=== PATIENT | male | born 1985 | race Caucasian/White ===

== ENCOUNTER 2022-01-03 19:33 | Emergency (ER) | payer MEDICAID, SELFPAY ==
--- NOTE | ~2022-01-03 | XR_ITS ---
EXAMINATION: XR HAND, RIGHT CLINICAL INFORMATION: Trauma COMPARISON: None TECHNIQUE: PA, lateral, and oblique views of the right hand. FINDINGS: The bones and soft tissues are normal. No fracture. Alignment is anatomic. Joint spaces are maintained. No erosions or soft tissue calcifications. XR/XR hand RT min 3V IMPRESSION: Normal right hand. No radiopaque foreign body.
[2022-01-03 19:35] VITALS: BP 119/76; PULSE 89; RESP 14; TEMP 36.2; O2SAT 95; BMI 31.5
[2022-01-03 19:48] VITALS: BP 120/73; PULSE 89; RESP 16; TEMP 36.4; O2SAT 95
--- NOTE | 2022-01-03 21:07 | ED_ITS ---
HPI - Extremity Injury (Upper) General Chief Complaint: Extremity Injury, Lower Stated Complaint: small hand lacs/punched window Time Seen by Provider: 01/03/22 21:05 Source: patient and other Mode of arrival: ambulatory History of Present Illness HPI narrative: 36-year-old male is brought in from his long-term with his guardian who reports that the patient punched a glass window that shattered and there are small lacerations the right hand. Patient denies any pain on movement within the hand. Related Data Allergies Allergy/AdvReac Type Severity Reaction Status Date / Time No Known Allergies Allergy Unverified 02/15/20 19:29 [No Known Allergies*] Thorazine Allergy Unknown Uncoded 09/20/19 00:00 Review of Systems Review of Systems: Pertinent positives and negatives as stated in HPI 10 point review of systems is otherwise negative. PMFSH Past Medical History Source: nursing notes reviewed Social History Social History Advance Directives: No Advance Directives Information Provided: No Physical Exam Vital Signs: Vital Signs: Last Vital Signs Temp 97.6 F 01/03/22 19:48 Pulse 89 01/03/22 19:48 Resp 16 01/03/22 19:48 BP 120/73 01/03/22 19:48 Pulse Ox 95 01/03/22 19:48 O2 Del Method 01/03/22 19:48 BMI result Body Mass Index 31.5 VITAL SIGNS: Reviewed. GENERAL: Well developed, well nourished, in no acute distress. HEAD: Normocephalic/atraumatic EYES: PERRLA, EOMI EARS: Ext canals without abnormality OROPHARYNX: no oral lesions noted, posterior pharynx clear LUNGS: Normal breath sounds. No adventitious sounds or accessory muscle use. SpO2<95> CARDIOVASCULAR: Regular rate and rhythm without noted murmurs ABDOMEN: Soft, non-tender, non-distended with bowel sounds. MUSCULOSKELETAL: No tenderness, deformities, or effusions noted on gross inspection. EXTREMITIES: No cyanosis, clubbing or edema; RIGHT HAND: Small superficial lacerations better hemostatic, there is full range of motion at the wrist and all MCPs.. SKIN: Inspection of the skin reveals no rashes NEUROLOGIC: Alert and oriented x 4. Strength and sensation to light touch were grossly intact x 4. Course Course Course Narrative: 36-year-old male with history and clinical presentation consistent with superficial lacerations without evidence of foreign body and on review of x-ray no acute findings. Lacerations were cleansed, bacitracin was applied and patient was discharged back to his long-term in stable condition. Discharge Plan Discharge Clinical Impression: Superficial laceration of right hand Patient Disposition: Xfer Other Instructions: Laceration (ED) Additional Instructions: You may cleanse the wounds on your hand with soap and water and blot dry. Apply antibiotic ointment as needed and apply a Band-Aid over top. Return to the ER for worsening symptoms. Referrals: Hitesh Ruelas DO, MD [Primary Care Provider] -
== END 2022-01-03 21:21 | disposition other institution (70) ==
PROVIDERS: Emergency Provider Student in an Organized Health Care Education/Training Program; PCP Internal Medicine
DX: S61.411A Laceration without foreign body of right hand, initial encounter (principal); W25.XXXA Contact with sharp glass, initial encounter; Y93.89 Activity, other specified; Y92.049 Unspecified place in boarding-house as the place of occurrence of the external cause; Y99.9 Unspecified external cause status
CPT/HCPCS: 73130; 99283

== ENCOUNTER 2022-12-30 11:30 | Emergency (ER) | payer MEDICAID, SELFPAY ==
[2022-12-30 11:32] VITALS: BP 112/77; PULSE 115; RESP 18; TEMP 35.9; O2SAT 95; BMI 32.0
--- NOTE | 2022-12-30 11:34 | ED.GENADULT ---
HPI - General Adult General Chief complaint: Animal Bite Stated complaint: cat scratches Time Seen by Provider: 12/30/22 11:44 Source: patient and other (patient's penitentiary staff) Mode of arrival: ambulatory Limitations: other (patient is mostly non-verbal) History of Present Illness HPI narrative: 37 y/o M PMHx of intellectual disability presents with cat scratches. Patient is mostly non-verbal, but group practice pediatrician states that he found a stray cat outside, who ultimately scratched both hands and bit his right palm. Patient is able to fully move his hands and states that it is painful. Patient denies fevers, chills, N/V/D, chest pain, shortness of breath. Onset (ago): hour(s) Location: left, right and upper extremity Radiation: non-radiation Severity: mild Severity scale (1-10): 3 Quality: aching and dull Pain Consistency: constant Relieving factors: none Exacerbating factors: none Associated symptoms: denies other symptoms Treatments prior to arrival: none Related Data Previous Rx's Medication Instructions Recorded amoxicillin 875 mg-potassium 1 tab PO BID 7 days #14 tabs 12/30/22 clavulanate 125 mg tablet Allergies Allergy/AdvReac Type Severity Reaction Status Date / Time No Known Allergies Allergy Unverified 02/15/20 19:29 [No Known Allergies*] Thorazine Allergy Unknown Uncoded 09/20/19 00:00 Review of Systems Constitutional: Constitutional: Reports no additional constitutional complaints, Denies chills, Denies fever(s) and Denies night sweats Eyes: Eyes: Reports no additional eye complaints, Denies blurry vision, Denies change in vision, Denies diplopia, Denies eye discharge, Denies loss of vision and Denies eye pain ENT: Denies dizziness Cardiovascular: Cardiovascular: Reports no additional cardiovascular complaints, Denies chest pain, Denies lightheadedness, Denies Loss of Consciousness and Denies dyspnea Respiratory: Respiratory: Reports no additional respiratory complaints and Denies dyspnea Gastrointestinal: Gastrointestinal: Reports no additional gastrointestinal complaints, Denies abdominal pain, Denies melena, Denies hematochezia, Denies change in bowel habits and Denies change in stool character Genitourinary: Genitourinary: Reports no additional male genitourinary complaints, Denies hematuria, Denies oliguria, Denies difficulty urinating, Denies dysuria, Denies urinary frequency, Denies urinary hesitancy, Denies urinary incontinence and Denies urinary urgency Musculoskeletal: Musculoskeletal: Reports no additional musculoskeletal complaints, Denies numbness and Denies tingling Integumentary/Breasts: Comments: cat scratches to both hands and a cat bite to the right hand Neurologic: Denies dizziness, Denies loss of vision, Denies numbness and Denies tingling Psychiatric: Psychiatric: Reports no additional psychiatric complaints Endocrine: Endocrine: Reports no additional endocrine complaints Hematologic/Lymphatic: Hematologic/Lymphatic: Reports no additional hematologic/lymphatic complaints Allergic/Immunologic: Allergic/Immunologic: Reports no additional allergic/immunologic complaints PMFSH Past Medical History Attestation statement: The following information was validated with the patient. (all information validated with the patient's penitentiary staff) Source: old records reviewed, nursing notes reviewed and other (patient's penitentiary staff provided additional history and confirmed the history provided by the patient.) Social History Social History Advance Directives: No Physical Exam ED Vital Signs: Vital Signs - 24 hr 12/30/22 11:32 Temperature 96.6 F L Pulse Rate 115 H Respiratory Rate 18 Blood Pressure 112/77 Pulse Oximetry 95 Oxygen Delivery Method Room Air BMI result Body Mass Index 32.0 Const General: cooperative, no acute distress, alert and awake Nutritional Appearance: well nourished Orientation/consciousness: patient oriented x3 Limitations: no limitations HENMT Head: Yes normal to inspection and Yes atraumatic Ears: hearing grossly normal bilaterally and external ears normal General nose exam: Normal external nose present, no nasal discharge noted and no epistaxis Face and sinus: Yes normal facial exam, No abrasion and No laceration Mouth: Normal oral and palatal mucosa present, no drooling and no muffled voice Eyes General: appearance normal, both eyes and all related structures Periorbital: periorbital findings normal Eyelids: Yes eyelids normal Conjunctivae: conjunctivae normal Pupils: Equal, round and reactive pupils present EOM: EOMs intact bilaterally Neck Neck: Yes normal visual inspection, Yes full ROM and Yes no lymphadenopathy Chest Chest palpation & inspection: normal inspection of the chest Resp Effort & Inspection: normal respiratory effort and able to speak in complete sentences GI Inspection: Yes normal to inspection Neuro General: patient oriented x3 and moves all extremities Cranial nerves: Yes Equal, round and reactive pupils present Cognition (Neuro): normal cognition Motor exam (neuro): 5/5 motor strength present throughout Sensory Exam: Normal double simultaneous stimulation for sensation Coordination: [id number] test normal Extrem Other: superficial scratches to the bilateral dorsal hands and a small puncture wound to the right palm, no active bleeding, no gaping areas, no surrounding erythema or warmth. General: Yes full ROM and Yes capillary refill normal Psych Appearance: grossly normal Mental Status: mental status grossly normal Affect: normal affect Attitude: cooperative Thought process: Normal thought process present Thought content: Normal thought content present Insight: Good insight present (Psych) Course Course Course Narrative: This is an RME: Additional HPI, ROS, PE not included below will be deferred to primary provider. This is a [id number] male brought into his penitentiary with his guardian, got scratched and ?bit by stray bite today. Radiology Scheduler is coming to the ER with more PMHx paperwork. BL arms with multiple scratches, right palm with ?cat bite. Plan: evaluate in main ER Medical Decision Making Medical Decision Making MDM Narrative: Patient is a 37 year old assigned male at with a history of intellectual disability presenting to the emergency department today with cat scratches and a cat bite to the hands. Patient's physical exam was as noted in the physical exam portion of this chart. I explained my physical exam findings to the patient and the patient's penitentiary staff. I answered all questions asked by the patient and the patient's penitentiary staff. Patient was brought up to date on his tetanus status and the rabies series was started. Patient was also given his first dose of augmentin here and a written script for the augmentin was given to the penitentiary staff member. I stressed the importance of the patient taking his medication as prescribed. I stressed the importance of the patient following up with his primary care provider. I stressed the importance of the patient returning to the emergency department immediately if his symptoms were to worsen or if he were to develop any dizziness, shortness of breath, difficulty breathing, chest pain, blurry vision, loss of vision, nausea, vomiting, abdominal pain, fever, chills, back pain, or any other complaints. Patient and the patient's penitentiary staff verbalized agreement and understanding with this treatment plan and discharge. Differential Diagnosis Differential Diagnoses: The differential diagnosis associated with the presentation includes Cat scratches Cat bite Prescription Management I considered prescription management with: Antibiotic (patient prescribed an antibiotic) Discharge Plan Discharge Clinical Impression: Cat bite Patient Disposition: Home, Self-Care Instructions: Animal Bite (ED), Rabies (ED) Additional Instructions: Take your antibiotic as prescribed. Follow up with your primary care provider. Return to the emergency department immediately if your symptoms worsen or if you develop any dizziness, shortness of breath, difficulty breathing, chest pain, blurry vision, loss of vision, nausea, vomiting, abdominal pain, fever, chills, back pain, or any other complaints. Call Medical Day Stay tomorrow at [phone] to schedule an appointment to receive the remainder of your required Rabies Vaccines. You will need a total of 3 more injections. Bring the Rabies Vaccine Order Set sheet and your Rabies Vaccination Record with you to these appointments. If the day you are supposed to come back for the rabies vaccine falls on a weekend or a holiday, proceed to the Emergency Department to receive the required vaccination. Follow up with your primary care provider after completion of the vaccine to have a titer drawn to ensure the vaccines effectiveness. Prescriptions: New amoxicillin-pot clavulanate 875-125 mg tablet 1 tab PO BID 7 Days Qty: 14 0RF Referrals: [facility] [place] [facility] [Provider Group] (Call to establish and follow up with a primary care provider. If you already have a primary care provider, please follow up with them.) [facility] [place] [facility] [Provider Group] (Call to establish and follow up with a primary care provider. If you already have a primary care provider, please follow up with them.) [facility] [place] [facility] [Provider Group] (Call to establish and follow up with a primary care provider. If you already have a primary care provider, please follow up with them.) Print Language: Faroese
[2022-12-30] MEDS: Rabies Immune Globulin/PF 900 UNIT/3 ML VIAL 1694 UNIT IM (13:05)
[2022-12-30] MEDS: Amoxicillin/Potassium Clav 875 MG TABLET PO (13:05)
[2022-12-30] MEDS: Diphth,Pertus(ACell),Tet Adult 0.5 ML SYRINGE IM (13:05)
[2022-12-30] MEDS: Rabies Vaccine, Human Diploid (Imovax) 1 ML VIAL IM (13:06)
--- NOTE | 2022-12-30 13:22 | PC.NURSE ---
pt medicated per MAR- caregivers verbalize understanding [place] [facility]. [place] [facility] [phone] and pharmacy [phone] see confirmations in rabies binder
== END 2022-12-30 13:24 | disposition home or self-care (01) ==
PROVIDERS: Emergency Provider Emergency Medicine; PCP Internal Medicine
DX: S61.451A Open bite of right hand, initial encounter (principal); W55.01XA Bitten by cat, initial encounter; S50.812A Abrasion of left forearm, initial encounter; W55.03XA Scratched by cat, initial encounter; Y93.9 Activity, unspecified; Y92.410 Unspecified street and highway as the place of occurrence of the external cause; Y99.9 Unspecified external cause status; Z20.3 Contact with and (suspected) exposure to rabies
CPT/HCPCS: 90375; 90471; 90472; 90675; 90715; 96372; 99282; 99284

== ENCOUNTER 2023-01-02 | Outpatient (REF) | payer MEDICAID, SELFPAY | END 2023-01-02 00:01 | disposition home or self-care (01) | LOC: HO.MDS | PROVIDERS: Visit Provider Physician Assistant Medical | DX: Z20.3 Contact with and (suspected) exposure to rabies (principal); S61.451D Open bite of right hand, subsequent encounter; W55.01XD Bitten by cat, subsequent encounter | CPT/HCPCS: 90471; 90675 ==

== ENCOUNTER 2023-01-08 11:35 | Outpatient (REF) | payer MEDICAID, SELFPAY | END 2023-01-08 11:36 | disposition home or self-care (01) | LOC: HO.MDS 11:35 | PROVIDERS: Visit Provider Physician Assistant Medical | DX: Z20.3 Contact with and (suspected) exposure to rabies (principal); S61.451D Open bite of right hand, subsequent encounter; W55.01XD Bitten by cat, subsequent encounter | CPT/HCPCS: 90471; 90675 ==

== ENCOUNTER 2023-01-15 10:01 | Outpatient (REF) | payer MEDICAID, SELFPAY | END 2023-01-15 10:02 | disposition home or self-care (01) | LOC: HO.MDS 10:01 | PROVIDERS: Visit Provider Physician Assistant Medical | DX: Z20.3 Contact with and (suspected) exposure to rabies (principal); S61.451D Open bite of right hand, subsequent encounter; W55.01XD Bitten by cat, subsequent encounter | CPT/HCPCS: 90471; 90675 ==

== ENCOUNTER 2023-08-02 10:45 | Emergency (ER) | payer MEDICAID, SELFPAY ==
[2023-08-02 11:05] VITALS: BP 121/70; PULSE 85; RESP 18; TEMP 36.6; O2SAT 98; BMI 31.9
--- NOTE | 2023-08-02 12:05 | ED_ITS ---
HPI - Fall General Chief Complaint: Fall Stated Complaint: Head inj Time Seen by Provider: 08/02/23 11:59 Source: other (Caregiver) Mode of arrival: ambulatory Limitations: altered mental status History of Present Illness HPI Narrative: 38-year-old male, from care home, presents to the emergency department for evaluation after he fell down 4 stairs and hit his head. He is here with a care home caregiver who states that it is protocol to have him evaluated. She denies any loss of consciousness, vomiting, change in gait, or change in patient's baseline behavior. She denies noting any swelling, erythema, ec chymosis, abrasion. She states patient is not on a blood thinner Related Data Previous Rx's Medication Instructions Recorded amoxicillin 875 mg-potassium 1 tab PO BID 7 days #14 tabs 12/30/22 clavulanate 125 mg tablet Allergies Allergy/AdvReac Type Severity Reaction Status Date / Time Thorazine Allergy Unknown Unknown Uncoded 08/02/23 11:04 Review of Systems Review of Systems: Yes all other systems are reviewed and are negative [facility] Social History Social History Advance Directives: No Advance Directives Information Provided: No Physical Exam Vital Signs: Vital Signs: Last Vital Signs Temp 98 F 08/02/23 11:05 Pulse 85 08/02/23 11:05 Resp 18 08/02/23 11:05 BP 121/70 08/02/23 11:05 Pulse Ox 98 08/02/23 11:05 O2 Del Method Room Air 08/02/23 11:05 BMI result Body Mass Index 31.9 Nursing notes and vital signs reviewed. GENERAL APPEARANCE: A&0 x 4, generally well appearing, no acute distress HENMT: Normal to inspection, atraumatic, face symmetrical. Normal external ears, nose, and oropharynx clear. EYE: PERRLA, EOM intact, structures appear normal NECK: Supple without stiffness or restricted ROM. HEART: Normal rate and regular rhythm, normal S1/S2, no M/R/G LUNGS: LS CTA, moving air well. Able to speak in complete sentences. No crackles, wheezes, or rhonchi auscultated BACK: No CVAT, no obvious deformity EXTREMITIES: Moving all extremities without difficulty. Normal capillary refill. NEUROLOGICAL: Alert and oriented, moving all 4 extremities with equal strength. CN not formally tested but appearing grossly intact. Observed to ambulate with normal gait. Cognition normal SKIN: Warm and dry without any lesions, rash, or visible sores Medical Decision Making Medical Decision Making MDM Narrative: Old records reviewed for previous imaging, lab studies, ECGs, and notes. Patient was assessed the emergency department with no acute distress or toxicity noted. [place] CT head rules 0, indicating CT head unnecessary at this time. I discussed with care home staff there is a potential for concussion like symptoms including nausea, vomiting, dizziness. Patient is safe for discharge at this time with plan for [id number] Tylenol and/or NSAID such as ibuprofen or naproxen for fever/discomfort with dosing as per packaging. HPI, PE, diagnostics, and plan discussed with patient and family with no unanswered questions at this time. Strict return precautions given to return to the emergency department with new, worsening, or concerning emergent symptoms. Recommended to follow-up with there primary care provider in 24-48 hours for further treatment and management. Differential Diagnosis Differential Diagnoses: The differential diagnosis associated with the presentation includes But not limited to skull fracture, intracranial hemorrhage, abrasion, contusion Discharge Plan Discharge Clinical Impression: Fall Qualifiers: Encounter type: initial encounter Qualified Code(s): W19.XXXA - Unspecified fall, initial encounter Contusion of head Qualifiers: Encounter type: initial encounter Contusion of head detail: unspecified part of head Qualified Code(s): S00.93XA - Contusion of unspecified part of head, initial encounter Patient Disposition: Home, Self-Care Instructions: Fall Prevention for Older Adults (ED), Contusion in Adults (ED) Prescriptions: No Action amoxicillin-pot clavulanate 875-125 mg tablet 1 tab PO BID 7 Days Qty: 14 0RF Referrals: Hitesh Ruelas DO, MD [Primary Care Provider] - Stand Alone Forms: Work/School Release Print Language: [place]
== END 2023-08-02 12:41 | disposition home or self-care (01) ==
PROVIDERS: Emergency Provider Emergency Medicine; PCP Internal Medicine
DX: S00.93XA Contusion of unspecified part of head, initial encounter (principal); W10.9XXA Fall (on) (from) unspecified stairs and steps, initial encounter; Y93.9 Activity, unspecified; Y92.89 Other specified places as the place of occurrence of the external cause; Y99.9 Unspecified external cause status
CPT/HCPCS: 99282